=== PATIENT | female | born 1970 | race Caucasian/White ===

== ENCOUNTER 2023-08-16 11:42 | Emergency (ER) | payer MEDICAID ==
[~2023-08-16] VITALS: Ht 167.6 cm; Wt 92.5 kg
[2023-08-16 11:59] VITALS: BP 155/100; PULSE 81; RESP 16; TEMP 97; O2SAT 99
[2023-08-16] MEDS ORDERED: KETOROLAC 30 MG/ML VIAL IM ONE (12:45)
[2023-08-16] MEDS ORDERED: HYDROcodone/APAP 7.5/325 MG 1 TAB PO ONE (12:45)
[2023-08-16] MEDS ORDERED: ACET-8905 PO (13:46)
[2023-08-16] MEDS ORDERED: LID5T TP (13:46)
[2023-08-16] MEDS ORDERED: NAPR-1559 PO (13:46)
[2023-08-16 13:56] VITALS: BP 128/74; PULSE 74; RESP 15; TEMP 97.8; O2SAT 100
== END 2023-08-16 13:58 | disposition home or self-care (01) ==
LOC: MED 11:42
DX: S46.811A Strain of other muscles, fascia and tendons at shoulder and upper arm level, right arm, initial encounter (principal); M75.31 Calcific tendinitis of right shoulder; X58.XXXA Exposure to other specified factors, initial encounter; Y93.89 Activity, other specified; Y92.89 Other specified places as the place of occurrence of the external cause; Y99.8 Other external cause status
CPT/HCPCS: 73030; 96372; 99283; J1885